=== PATIENT | male | born 2005 | race Caucasian/White ===

== ENCOUNTER 2023-11-07 00:13 | Emergency (ER) | payer SELFPAY ==
[2023-11-07 00:14] VITALS: BP 157/98; PULSE 121; RESP 30; TEMP 36.9; O2SAT 96; BMI 22.2
--- NOTE | 2023-11-07 00:16 | ECG_ITS ---
[facility] Test Date: 2023-11-07 Pat Name: Annika Lozada Department: Room: Gender: Male Order Fulfillment Specialist: : [id number] Requested By: Ibrahima Ryan Order Number: [id number] Mark MD: Radha Fisher M.D. Measurements Intervals [place] Rate: 105 P: 79 VT: 140 QRS: 90 QRSD: 105 T: 44 QT: 353 QTc: 467 Interpretive Statements SINUS TACHYCARDIA ABNORMAL RHYTHM ECG No previous ECG available for comparison Electronically Signed On 11-07-2023 13:42:34 CDT by Radha Fisher M.D. [email or web address] [id number] f
--- NOTE | 2023-11-07 00:18 | XRR_ITS ---
PROCEDURE INFORMATION: Exam: XR Chest Exam date and time: 11/07/2023 12:36 AM Age: 18 years old Clinical indication: Other: Drug overdose; Patient HX: EMS arrival for overdose on oxycodone, xanex, and fentanyl. TECHNIQUE: Imaging protocol: Radiologic exam of the chest. Views: 1 view. COMPARISON: No relevant prior studies available. FINDINGS: Lungs: Unremarkable. No consolidation. Pleural spaces: Unremarkable. No pleural effusion. No pneumothorax. Heart/Mediastinum: Unremarkable. No cardiomegaly. Bones/joints: Unremarkable. XR/XR chest 1V portable [id number] IMPRESSION: No acute findings.
--- NOTE | 2023-11-07 00:20 | ED_ITS ---
HPI - Overdose 2 General: Chief Complaint: Overdose Stated Complaint: OD Time Seen by Provider: 11/07/23 00:18 History of Present Illness: Patient brought in by EMS and law enforcement for overdose after getting arrested. Patient admits he was trying to harm himself and commit suicide. Patient admits to taking 2-30 mg oxycodone tablets and approximately 6-2 mg Xanax tablets. Patient also says the Xanax was probably laced with fentanyl. Physical Exam 2 Const: COMMON NORMALS: no acute distress, average body habitus, patient oriented x3, no limitations, healthy appearing, alert and well nourished O THER: Slowed but will answer questions appropriately alert oriented and coherent HENMT: COMMON NORMALS: normocephalic, atraumatic, external ears normal, Normal external nose present, moist oral mucous membranes and oropharynx normal HEAD & SCALP: normocephalic and atraumatic NOSE: Normal external nose present E XTERNAL EAR: Yes external ears normal Eye: COMMON NORMALS: Equal, round and reactive pupils present, EOMs intact bilaterally, conjunctivae normal and no scleral icterus CONJUNCTIVA: Yes conjunctivae normal PUPIL: Yes Equal, round and reactive pupils present Neck/C-Spine: COMMON NORMALS: full ROM, no lymphadenopathy, supple, no meningeal signs, no JVD and Thyroid normal THYROID: Thyroid normal Chest: COMMONS NORMALS: normal inspection of the chest and normal palpation of entire chest wall Resp: COMMON NORMALS: normal respiratory effort, No retractions, No use of accessory muscles and clear to auscultation bilaterally AUSCULTATION: clear to auscultation bilaterally Cardio: COMMON NORMALS: no JVD, regular rhythm, S1 normal heart sound present, S2 normal heart sound present, No gallops present (Cardio), No clicks present (Cardio), No murmurs present (Cardio) and No rub (Cardio); negative for regular rate (Tachycardic) RATE: abnormal rate (Tachycardic) RHYTHM: regular rhythm HEART SOUNDS: S1 normal heart sound present and S2 normal heart sound present GI: COMMON NORMALS: Normal to inspection, nondistended, normoactive bowel sounds present, Soft to palpation, non-tender, No hepatosplenomegaly present and no masses PALPATION: Yes Soft to palpation and Yes No hepatosplenomegaly present Neuro: COMMON NORMALS: patient oriented x3 SENSORIUM/ORIENTATION: Yes alert MENINGEAL SIGNS: Yes no meningeal signs Course 2 Vital Signs: Vital signs: Vital Signs Temperature 98.5 F 11/07/23 00:14 Pulse Rate 79 11/07/23 02:15 Respiratory Rate 16 11/07/23 02:15 Blood Pressure 96/42 11/07/23 02:15 Pulse Oximetry 93 11/07/23 02:15 Oxygen Delivery Me thod Nasal Cannula 11/07/23 01:18 Oxygen Flow Rate 3 11/07/23 01:18 MDM - Overdose Medical Decision Making Patient is worked up in normal overdose type fashion with labs EKG chest x-ray urinalysis. Patient did have 1 episode that he worked himself up into friends he started hyperventilating and had twitching like activity. Was not seizure. Activity as patient was not postictal did not did not lose bowel or bladder consciousness and was alert and oriented the entire time. Patient was observed approximately 2 and half hours. The peak of Xanax oxycodone is on a 1 to 2-hour range. Patient stated alert oriented coherent. Patient be discharged back to [facility]. Differential Diagnosis Likely suicide attempt by multiple drug overdose, poisoning by opiate or related narcotic and drug overdose Medical Records I reviewed the patient's medical records. Lab Data I reviewed the patient's lab results. 11/07/23 00:00 11/07/23 00:00 Radiology Impressions Chest X-Ray 11/07/23 00:18 IMPRESSION: No acute findings. Laboratory Results WBC 8.51 10^3/uL (4.5-13.0) 11/07/23 00:00 RBC 5.35 10^6/uL (3.85-5.65) 11/07/23 00:00 Hgb 15.30 g/dL (13.2-15.6) 11/07/23 00:00 Hct 44.0 % (37-53) 11/07/23 00:00 MCV 82.2 fl (82-101) 11/07/23 00:00 MCH 28.6 pg (27-33) 11/07/23 00:00 MCHC 34.8 g/dL (30-55) 11/07/23 00:00 RDW 11.4 % (12.1-15.1) L 11/07/23 00:00 Plt Count 327 10^3/cmm (157-399) 11/07/23 00:00 MPV 9.6 fL (7.4-10.4) 11/07/23 00:00 Neut % (Auto) 51.9 % 11/07/23 00:00 Lymph % (Auto) 36.7 % 11/07/23 00:00 [place] % (Auto) 10.1 % 11/07/23 00:00 Eos % (Auto) 0.7 % 11/07/23 00:00 Baso % (Auto) 0.5 % 11/07/23 00:00 Neut # (Auto) 4.42 10^3/uL (1.8-8.0) 11/07/23 00:00 Lymph # (Auto) 3.1 10^3/uL (1.5-6.5) 11/07/23 00:00 [place] # (Auto) 0.9 10^3/uL (0.2-0.9) 11/07/23 00:00 Eos # (Auto) 0.1 10^3/uL (0.0-0.8) 11/07/23 00:00 Baso # (Auto) 0.0 10^3/uL (0.0-0.1) 11/07/23 00:00 Nucleated RBC % (auto) 0 % 11/07/23 00:00 Nucleated RBCs # 0.0 /100WBC 11/07/23 00:00 Specimen Type Arterial 11/07/23 00:52 Sample Site Radial, left 11/07/23 00:52 ABG pH 7.51 (7.35-7.45) H 11/07/23 00:52 ABG pCO2 32.0 mmHg (35-45) L 11/07/23 00:52 ABG pO2 107.0 mmHg (80.0-100.0) H 11/07/23 00:52 ABG HCO3 25.5 mmol/L (22-26) 11/07/23 00:52 ABG O2 Saturation 99.6 11/07/23 00:52 ABG Base Excess 3.1 mmol/L (-2.0-2.0) H 11/07/23 00:52 Ankit Test Pos 11/07/23 00:52 A-a O2 Gradient 0.3 mmHg (5-10) L 11/07/23 00:52 Hematocrit 45.6 % (42-52) 11/07/23 00:52 Hgb O2 Saturation 98.1 % (95-100) 11/07/23 00:52 Carboxyhemoglobin 0.8 %THgb (0.4-20.1) 11/07/23 00:52 Methemoglobin 0.7 % (0.4-1.5) 11/07/23 00:52 Total Hemoglobin 14.9 g/dL (14-18) 11/07/23 00:52 Sodium 141.0 mmol/L (131-143) 11/07/23 00:52 Potassium 3.1 mmol/L (3.5-5.0) L 11/07/23 00:52 Glucose 106.0 mg/dL (70-115) 11/07/23 00:52 Ionized Calcium 1.2 mmol/L (1.1-1.4) 11/07/23 00:52 O2 Delivery Device Nc 11/07/23 00:52 O2 Liters/Min 2.0 % 11/07/23 00:52 [employer] ID [email or web address] 11/07/23 00:52 Sodium 140 mmol/L (136-145) 11/07/23 00:00 Potassium 3.6 mmol/L (3.5-5.1) 11/07/23 00:00 Chloride 99 mmol/L (98-107) 11/07/23 00:00 Carbon Dioxide 24 mmol/L (22-29) 11/07/23 00:00 Anion Gap 20.6 (5-19) H 11/07/23 00:00 BUN 7 mg/dL (6-20) 11/07/23 00:00 Creatinine 1.0 mg/dL (0.7-1.2) 11/07/23 00:00 GFR Calculation 95.3 mL/min (90-130) 11/07/23 00:00 Glucose 108 mg/dL (65-115) 11/07/23 00:00 Calculated Osmolality 289 mOsm/kg (285-295) 11/07/23 00:00 Calcium 9.9 mg/dL (8.5-10.5) 11/07/23 00:00 Magnesium 2.1 mg/dL (1.7-2.3) 11/07/23 00:00 Total Bilirubin 0.7 mg/dL (0.15-1.2) 11/07/23 00:00 AST 26 U/L (0-40) 11/07/23 00:00 ALT 16 U/L (0-41) 11/07/23 00:00 Alkaline Phosphatase 92 U/L (40-130) 11/07/23 00:00 Troponin T Baseline 8 ng/L (0-15) 11/07/23 00:00 Troponin T 120 Minute 6.00 ng/L (0-15) 11/07/23 02:15 Total Protein 7.7 g/dL (6.6-8.7) 11/07/23 00:00 Albumin 5.1 g/dL (3.5-5.2) 11/07/23 00:00 Globulin 2.6 g/dL (1.3-4.6) 11/07/23 00:00 Urine Color Yellow (Yellow) 11/07/23 02:13 Urine Appearance Clear (CLEAR) 11/07/23 02:13 Urine pH 8 (5-7) H 11/07/23 02:13 Ur Specific [place] 1.010 (1.005-1.030) 11/07/23 02:13 Urine Protein Neg (Negative) 11/07/23 02:13 Urine Glucose (UA) Norm (Normal) 11/07/23 02:13 Urine Ketones Negative (Negative) 11/07/23 02:13 Urine Blood Neg (Negative) 11/07/23 02:13 Urine Nitrate Negative (Negative) 11/07/23 02:13 Urine Bilirubin Neg (Negative) 11/07/23 02:13 Prot Sulfosalicylic Acd Negative (Negative) 11/07/23 02:13 Urine Urobilinogen Neg mg/dL (Negative) 11/07/23 02:13 Ur Leukocyte Esterase Negative (Negative) 11/07/23 02:13 Salicylates < 0.3 mg/dL (3-10) L 11/07/23 00:00 Urine Opiates Screen Positive ng/mL (Negative) H 11/07/23 02:13 Acetaminophen < 5.0 ug/mL (10-30) L 11/07/23 00:00 Ur Barbiturates Screen Negative ng/mL (Negative) 11/07/23 02:13 Ur Phencyclidine Scrn Negative ng/mL (Negative) 11/07/23 02:13 Ur Amphetamines Screen Negative ng/mL (Negative) 11/07/23 02:13 U Benzodiazepines Scrn Positive ng/mL (Negative) H 11/07/23 02:13 Urine Cocaine Screen Negative ng/mL (Negative) 11/07/23 02:13 U Marijuana (THC) Screen Positive ng/mL (Negative) H 11/07/23 02:13 Ethyl Alcohol < 10 mg/dL (0-10) 11/07/23 00:00 All radiology interpretation(s) finalized by discharge Discharge Plan Discharge Patient Disposition: Home Clinical Impression: Drug overdose Qualifiers: Encounter type: initial encounter Injury intent: intentional self-harm Q ualified Code(s): T50.902A - Poisoning by unspecified drugs, medicaments and biological substances, intentional self-harm, initial encounter Condition: Stable Discharge Orders: Discharge ED (Routine); Ordered 11/07/23 Ordered By: Ibrahima Ryan Referrals: Augustine Davis [Family Provider] - Adan Woods FNP [Primary Care Provider] - Patient Instructions: Benzodiazepine Overdose (ED), Suicide Prevention (ED), Opioid Safety, Pain Management Activity Restrictions/Additional Instructions: Please do not take any illicit drugs or any medication that is not yours. You will be discharged back to police custody. Coding Level of Care Code ED Grinding Machine Operator Portable for Samantha Harden
[2023-11-07 00:25] VITALS: BP 134/86; PULSE 109; RESP 21; O2SAT 97
[2023-11-07 00:42] LABS: Basophils % 0.5 %; Eosinophils # 0.1 10^3/uL (0.0-0.8); Eosinophils % 0.7 %; Lymphocytes # 3.1 10^3/uL (1.5-6.5); Lymphocytes % 36.7 %; Mean Corpuscular HGB Conc 34.8 g/dL (30-55); Mean Corpuscular Hemoglobin 28.6 pg (27-33); Mean Corpuscular Volume 82.2 fl (82-101); Mean Platelet Volume 9.6 fL (7.4-10.4); Monocytes # 0.9 10^3/uL (0.2-0.9); Monocytes % 10.1 %; Neutrophils # 4.42 10^3/uL (1.8-8.0); Neutrophils % 51.9 %; Nucleated Red Blood Cells % 0 %; Platelet Count 327 10^3/cmm (157-399); Red Blood Count 5.35 10^6/uL (3.85-5.65); Red Cell Distribution Width 11.4 % (12.1-15.1); White Blood Count 8.51 10^3/uL (4.5-13.0)
[2023-11-07 00:50] LABS: Troponin(5th) Baseline 8 ng/L (0-15)
[2023-11-07 00:53] LABS: Alanine Aminotransferase 16 U/L (0-41); Albumin Level 5.1 g/dL (3.5-5.2); Alkaline Phosphatase 92 U/L (40-130); Anion Gap 20.6 (5-19); Aspartate Amino Transferase 26 U/L (0-40); Blood Urea Nitrogen 7 mg/dL (6-20); Calcium 9.9 mg/dL (8.5-10.5); Carbon Dioxide 24 mmol/L (22-29); Chloride 99 mmol/L (98-107); Globulin 2.6 g/dL (1.3-4.6); Glomerular Filtration Rate 95.3 mL/min (90-130); Glucose 108 mg/dL (65-115); Osmolality Calculated 289 mOsm/kg (285-295); Potassium 3.6 mmol/L (3.5-5.1); Sodium 140 mmol/L (136-145); Total Bilirubin 0.7 mg/dL (0.15-1.2); Total Protein 7.7 g/dL (6.6-8.7)
[2023-11-07 00:54] LABS: Acetaminophen < 5.0 ug/mL (10-30); Alcohol Level < 10 mg/dL (0-10); Salicylate < 0.3 mg/dL (3-10)
[2023-11-07 01:03] LABS: ABG PH Result 7.51 (7.35-7.45); Alveolar-Arterial Oxygen Gradi 0.3 mmHg (5-10); Arterial Blood Gas Hematocrit 45.6 % (42-52); Base Excess ABG 3.1 mmol/L (-2.0-2.0); Blood Gas Allen Test Pos; Blood Gas Sample Site Radial, left; Blood Gas Sample Type Arterial; Carboxyhemoglobin 0.8 %THgb (0.4-20.1); HCO3 ABG 25.5 mmol/L (22-26); HGB O2 Sat 98.1 % (95-100); Ionized Calcium Level - ABG 1.2 mmol/L (1.1-1.4); Methemoglobin 0.7 % (0.4-1.5); Oxygen Device NC; Oxygen Saturation ABG 99.6; Potassium Level - ABG 3.1 mmol/L (3.5-5.0); Total Hemoglobin 14.9 g/dL (14-18)
[2023-11-07 01:08] LABS: Magnesium 2.1 mg/dL (1.7-2.3)
[2023-11-07] MEDS: LORazepam 2 mg/mL INJ 10 mL MDV IVP (01:15)
[2023-11-07 01:18] VITALS: BP 120/62; PULSE 81; RESP 23; O2SAT 96
--- NOTE | 2023-11-07 01:24 | PC.NURSE ---
@ 0045- Patient having seizure-like activity without postictal state. Pt responding to verbal commands. Pt breathing rate in the 30s. iv ativan ivp per verbal dr rosas. Pt stable in room with normal vitals. Pt was placed on oxygen via nc and suction turned on at bedside. Officer in room with patient at this time.
[2023-11-07 02:15] VITALS: BP 96/42; PULSE 79; RESP 16; O2SAT 93
--- NOTE | 2023-11-07 02:21 | ECG_ITS ---
[facility] Test Date: 2023-11-07 Pat Name: Annika Lozada Department: Room: Gender: Male Dialysis Clinical Manager: : 2005 Requested By: Ibrahima Ryan Order Number: [id number] Mark MD: Radha Fisher M.D. Measurements Intervals [place] Rate: 62 P: 77 OK: 136 QRS: 82 QRSD: 106 T: 55 QT: 427 QTc: 434 Interpretive Statements SINUS RHYTHM Compared to ECG 11/07/2023 00:16:04 Sinus tachycardia no longer present Electronically Signed On 11-07-2023 13:46:02 CDT by Radha Fisher M.D. [id number]
[2023-11-07 02:22] LABS: Add Urine Microscopic? NO; Charge for UA Resulting for Rev
[2023-11-07 02:38] LABS: Amphetamines Screen Urine Negative (Negative); Barbiturates Screen Urine Negative (Negative); Benzodiazepines Screen Urine Positive (Negative); Bilirubin Urine Neg (Negative); Blood Urine Neg (Negative); Cocaine Screen Urine Negative (Negative); Glucose Urine UA Norm (Normal); Ketones Urine Negative (Negative); Leukocyte Esterase Urine Negative (Negative); Nitrate Urine Negative (Negative); Opiate Screen Urine Positive (Negative); PCP Screen Urine Negative (Negative); Protein Urine Neg (Negative); Sulfosalicylic Acid Urine Negative (Negative); THC Screen Urine Positive (Negative); Urine Appearance Clear (CLEAR); Urine Color Yellow (Yellow); Urobilinogen Urine Neg (Negative); pH Urine 8 (5-7)
[2023-11-07 02:44] VITALS: BP 112/70; PULSE 68; RESP 20; O2SAT 98
== END 2023-11-07 03:41 | disposition home or self-care (01) ==
PROVIDERS: Emergency Provider Emergency Medicine; Family Provider Family Medicine; PCP Nurse Practitioner Family
DX: T42.4X2A Poisoning by benzodiazepines, intentional self-harm, initial encounter (principal); T40.2X2A Poisoning by other opioids, intentional self-harm, initial encounter
CPT/HCPCS: 36415; 36600; 51701; 71045; 80051; 80053; 80306; 80307; 81003; 82330; 82805; 83735; 84484; 85025; 93005; 96374; 99285; J2060